=== PATIENT | female | born 1985 | race African-American/Black ===

== ENCOUNTER 2022-11-19 18:57 | Emergency (ER) | payer MEDICAID ==
[~2022-11-19] VITALS: Ht 170.2 cm; Wt 73.4 kg
[2022-11-19] MEDS ORDERED: morphine 2 MG/ML inj. syringe IV STA (20:08)
[2022-11-19] MEDS ORDERED: ondansetron/PF 4mg/2ml inj IV ONE (20:10)
[2022-11-19 21:41] LABS: BASOPHILS # (AUTO) 0.1 X10'3 (0-0.2); BASOPHILS % (AUTO) 0.9 % (0-1); EOSINOPHILS % (AUTO) 0.3 % (0-6); LYMPHOCYTES # (AUTO) 1.5 X10'3 (1.1-4.8); LYMPHOCYTES % (AUTO) 13.8 % (21-51); MEAN CORPUSCULAR HEMOGLOBIN 29.4 PG (27.0-31.0); MEAN CORPUSCULAR HGB CONC 33.4 g/dL (33.0-36.5); MEAN CORPUSCULAR VOLUME 88.2 FL (78-98); MEAN PLATELET VOLUME 7.7 FL (7.4-10.4); MONOCYTES # (AUTO) 0.6 X10'3 (0-0.9); MONOCYTES % (AUTO) 5.1 % (2-12); NEUTROPHILS # (AUTO) 8.9 X10'3 (1.8-7.7); NEUTROPHILS % (AUTO) 79.9 % (42-75); PLATELET COUNT 291 X10'3 (140-440); RED BLOOD COUNT 4.09 X10'6 (4.20-5.60); RED CELL DISTRIBUTION WIDTH 13.4 % (11.5-14.5); WHITE BLOOD COUNT 11.2 X10'3 (4.5-11.0)
--- NOTE | 2022-11-19 21:45 | NUR ---
REVIEWED LVNS ASSESSMENT, AGREE WITH ASSESSMENT.
[2022-11-19 22:23] LABS: BETA HCG,QUANTITATIVE 14163 mIU/ml
[2022-11-19 22:39] LABS: ALANINE AMINOTRANSFERASE 21 U/L (12-78); ALBUMIN 3.5 G/DL (3.4-5.0); ALBUMIN/GLOBULIN RATIO 0.7 (1.1-1.5); ALKALINE PHOSPHATASE 56 IU/L (46-116); ANION GAP 9 (8-16); ASPARTATE AMINO TRANSFERASE 23 U/L (10-37); BILIRUBIN,TOTAL 0.4 MG/DL (0.1-1.0); BLOOD UREA NITROGEN 16 MG/DL (7-18); BUN/CREATININE RATIO 20.8 (10.0-20.0); CALCIUM 8.8 MG/DL (8.5-10.1); CHLORIDE 104 MMOL/L (99-107); CREATININE 0.77 MG/DL (0.40-0.90); GLUCOSE 124 MG/DL (70-104); POTASSIUM 3.7 MMOL/L (3.5-5.1); SODIUM 133 MMOL/L (135-145); TOTAL PROTEIN 8.4 G/DL (6.4-8.2); eCRCL 95 ML/MIN; eGFR > 90 ML/MIN
[2022-11-19] MEDS ORDERED: HYDR-3965 PO ×3 (23:28→23:30)
[2022-11-19] MEDS ORDERED: HYDROcodone/acetaminophen 10/325mg tab PO ONE (23:30)
[2022-11-20 00:05] VITALS: BP 112/66; PULSE 97; RESP 16; TEMP 98.3; O2SAT 99
[2022-11-20] MEDS ORDERED: HYDR-3965 PO (00:19)
== END 2022-11-20 00:25 | disposition home or self-care (01) ==
LOC: ER 18:58
DX: O03.4 Incomplete spontaneous abortion without complication (principal); Z79.899 Other long term (current) drug therapy
CPT/HCPCS: 36415; 76801; 80053; 84702; 85025; 86885; 86900; 86901; 96374; 96375; 99285; J2270; J2405

== ENCOUNTER 2023-09-27 11:54 | Emergency (ER) | payer OTHER, MEDICAID ==
[~2023-09-27] VITALS: Ht 170.2 cm; Wt 79.5 kg
[~2023-09-27 11:54] MED LIST: HYDR-3965 PO
[2023-09-27] MEDS ORDERED: acetaminophen 325mg tablet PO ONE (12:40)
[2023-09-27] MEDS: ketorolac trometh 30MG/ML vial 30 MG/ML VIAL IM ONE (12:41)
[2023-09-27] MEDS: acetaminophen 325mg tablet PO ONE (12:46)
[2023-09-27 13:21] LABS: BILIRUBIN,URINE NEGATIVE (Neg); CLARITY,URINE SLIGHTLY CLOUDY (Clear); COLOR,URINE YELLOW (Yellow); GLUCOSE, URINE NEGATIVE (Neg); KETONES,URINE NEGATIVE (Neg); LEUKOCYTE ESTERASE ,URINE NEGATIVE (Neg); NITRITES, URINE NEGATIVE (Neg); OCCULT BLOOD,URINE NEGATIVE (Neg); PROTEIN,URINE NEGATIVE (Neg); UROBILINOGEN,URINE 0.2 E.U/dL (0.2-1.0)
[2023-09-27 13:39] LABS: UA COLLECTION TYPE NON-SPECIFIED
[2023-09-27 13:41] LABS: SQUAMOUS EPITHELIAL CELL,UR MANY /LPF (FEW)
[2023-09-27 13:42] LABS: BACTERIA,URINE 1+ /HPF (Neg); RBC,URINE 0-2 /HPF (0-2); WBC,URINE 0-4 /HPF (0-4)
[2023-09-27 13:57] VITALS: BP 143/95; PULSE 98; RESP 22; TEMP 98.6; O2SAT 99
== END 2023-09-27 13:59 | disposition home or self-care (01) ==
LOC: ER 11:54
DX: O9A.211 Injury, poisoning and certain other consequences of external causes complicating pregnancy, first trimester (principal); S63.501A Unspecified sprain of right wrist, initial encounter; Z3A.01 Less than 8 weeks gestation of pregnancy; Z79.899 Other long term (current) drug therapy; V89.2XXA Person injured in unspecified motor-vehicle accident, traffic, initial encounter; Y93.89 Activity, other specified; Y92.89 Other specified places as the place of occurrence of the external cause; Y99.8 Other external cause status
CPT/HCPCS: 73090; 73110; 76801; 81001; 99284; A4565